=== PATIENT | female | born 1960 | race Caucasian/White ===

== ENCOUNTER 2024-10-27 20:31 | Inpatient (IN) | payer BC, SELFPAY ==
[2024-10-27] VITALS (7 sets, daily range): BP systolic 112–130; BP diastolic 65–99; BMI 25.6; BMI 25.4
--- NOTE | 2024-10-27 11:12 | ED.GENMED ---
History of Present Illness
<Barrie Ku, DO - Last Filed: 11/01/24 03:09>
General
Chief Complaint: Cancer Problem
Source: patient, spouse and family
Exam Limitations: none
Time Seen by Provider: 10/27/24 10:48
History of Present Illness
History of Present Illness:
Note:
CHIEF COMPLAINT(S)
Chills, muscle weakness, arm and leg weakness, headache, and lower back pain following recent cancer treatment and whole brain radiation.
HISTORY OF PRESENT ILLNESS
The patient is a 64-year-old female with a recent history of cancer treatment, reporting to the emergency department with complaints of chills, generalized weakness, and inability to ambulate independently. These symptoms began after recent
whole-brain radiation and a ketamine infusion on Wednesday. The patient slept for approximately 18 hours post-treatment and has since experienced significant leg and arm weakness, making it difficult to get out of bed or walk. She reported chills
and a low-grade fever of 99.5�F, particularly intense on the first night. She experiences aches primarily in her legs after prolonged periods of lying down and describes lower back pain. Additionally, the patient has been experiencing headaches and
a reduced level of alertness since yesterday. The patients and daughter accompanied her and emphasized that her symptoms feel worse than anticipated. They were instructed by her healthcare provider to come to the facility for further
evaluation, including MRIs of the brain and spine, due to the deterioration in her condition.
ADDITIONAL HISTORY OBTAINED FROM SOURCES OTHER THAN THE PATIENT
Per the patients and daughter, her condition, specifically her muscle weakness and fatigue, appears more severe than anticipated post-treatment. They also coordinated with her healthcare provider regarding the necessity of MRIs.
CHRONIC MEDICAL CONDITIONS SIGNIFICANTLY AFFECTING CARE
The patient has a known history of cancer and has recently undergone whole-brain radiation therapy.
REVIEW OF SYSTEMS
- Neurological: Severe muscle weakness in arms and legs, headaches, reduced alertness.
- Musculoskeletal: Significant leg weakness, difficulty in ambulating independently.
- General: Chills, low-grade fever of 99.5�F.
- Pain: Lower back pain, muscle aches when lying down for prolonged periods.
PHYSICAL EXAM
General: Alert, no acute distress.
Skin: Warm, dry.
Head: Normocephalic, atraumatic.
Neck: Supple, trachea midline.
Eye Ears, nose, mouth and throat: Oral mucosa moist.
Cardiovascular: Normal peripheral perfusion, No edema.
Respiratory: Respirations are non-labored.
Gastrointestinal: Abdomen nondistended.
Back: Normal range of motion, Normal alignment.
Musculoskeletal: Normal range of motion, noticeable weakness in arm and leg muscles.
Neurological: Alert, reduced motor strength in arms and legs, No focal neurological deficit observed.
Psychiatric: Cooperative, appropriate mood & affect.
PLAN
1. Contact the oncology team and her primary oncologist to discuss the patients condition and coordination of care.
2. Obtain MRI of the brain and spine as a priority to evaluate for any pathological changes.
3. Access the port for necessary lab work and potential medication administration.
4. Evaluate the possibility of infectious causes considering the fever and chills.
5. Monitor vital signs and level of consciousness closely.
6. Topical anesthetic may be used prior to accessing the port to minimize discomfort.
DIFFERENTIAL DIAGNOSIS
The Differential Diagnosis includes, in no particular order and is not limited to:
1. Neoplastic progression or metastasis
2. Paraneoplastic syndrome
3. Side effects from recent radiation therapy
4. Medication side effects
5. Neurological disorder complications
6. Infection or febrile illness
7. Dehydration or electrolyte imbalance
8. Anemia
9. Myopathy
10. Cerebrovascular event
Phy Exam
<Barrie Ku DO - Last Filed: 11/01/24 03:09>
Physical Exam
Physical Exam:
.
Course
<Barrie Ku DO - Last Filed: 11/01/24 03:09>
Orders/Labs/Results
Orders:
Orders
10/27/24 11:11
Cardiac Monitoring- Treatment ONCE
IV Insert/Care/Rem.- Treatment PRN
10/27/24 11:23
COVID-19 Antigen Urgent
Source: Nasal Swab
Complete Blood Count/With Diff Urgent
Comprehensive Metabolic Panel Urgent
Lactic Acid Q4H
Comment: CANCEL 2nd LACTIC ACID IF 1st LACTIC ACID IS LESS THAN 2
Urinalysis Reflex To Culture Urgent
Date Specimen was Collected: 10/27/24
Time Specimen was Collected: 11:13
Blood Culture Q30M
CURT Source: Blood/Venous
Specimen Description:
Blood Culture Q30M
CURT Source: Blood/Venous
Specimen Description:
Influenza A+B Rapid Molecular Urgent
CURT Source: Nasal Swab
Specimen Description:
10/27/24 13:04
MR Brain W/o & With Contrast Urgent
Comment:
Reason For Exam: weakness, headache, lung ca, brain mets
OK for patient to be off Cardiac Monitoring for MRI: Yes
Recent pill cam endoscopy?: No
MR Lumbar W/o & With Contrast Urgent
Comment:
Reason For Exam: weakness, diff walking, lung ca, brain mets
OK for patient to be off Cardiac Monitoring for MRI: Yes
Recent pill cam endoscopy?: No
10/27/24 13:39
0.9% Sodium Chloride 1000 ml [Nss] 1,000 ml IV BOLUS
10/27/24 Dinner
Regular
At Your Request: Full Participation
Fluid Restriction: 1200 mL/day (40 oz)
10/27/24 19:51
Admit/Transfer Patient As Directed
Co-Sign Provider:
Level of Care: Inpatient admission
Assign to:: Medical/Surgical
Physician / Group: Alexsandra
Diagnosis: Metastatic brain mets
Reason for Hospitalization: new metastatic brain lesions
Expected length of stay greater than two midnights?: Yes
ELOS- Estimated Length of Stay in days: 2
I certify the patient meets the requirements for IP care: Yes
PRN Pain Medication Management As Directed
May give lesser potent ordered pain med per pt: Yes
preference::
Protocol:: Medication orders for pain may be administered in a
manner that supports deferring to patient preference
when the pt is:
- Requesting an ordered lesser potent pain medication.
Least to most potent pain medications are defined
as: acetaminophen < NSAID < tramadol < opioids
(morphine, oxycodone, hydromorphone).
- Requesting a lesser dose of the same medication IF
ORDERED.
- Requesting a less intrusive route of administration
if both routes are prescribed by the provider (PO <
IV).
10/27/24 19:53
Code Status As Directed
Resuscitation Status: Full Code
10/27/24 20:59
Acetaminophen [Tylenol] 650 mg PO Q4HPRN PRN
Bisacodyl [Dulcolax] 10 mg RECTAL [id number] PRN
Dexamethasone [Decadron] 2 mg PO Q12
Docusate W/Senna [Senokot-S] 1 tablet PO BIDPRN PRN
HYDROmorphone [Dilaudid] 0.5 mg IV Q4HPRN PRN
Ondansetron Injectable [Zofran] 4 mg IV Q6HPRN PRN
Oxycodone [Roxicodone] 5 mg PO Q4HPRN PRN
Polyethylene Glycol Powder [Miralax] 17 grams PO DAILYPRN PRN
Zolpidem Tartrate [Ambien] 10 mg PO HSPRN PRN insomnia
10/27/24 20:59
Osmolality, Random Urine Routine
Date Specimen was Collected: 10/28/24
Time Specimen was Collected: 13:56
Urine Sodium Routine
Date Specimen was Collected: 08/30/25
Time Specimen was Collected: 13:56
Activity As Directed
Activity Level: With Assistance
Neurological Checks As Directed
Frequency: q8h
Orthostatic Vital Signs As Directed
Orthostatic VS Frequency: Daily
Vital Signs As Directed
Frequency: Per unit guidelines
Pulse Ox/spot Check [RESP] Routine
Quantity: 1
DX Deep Vein Thrombosis Video Routine
10/27/24 22:00
Levetiracetam [Keppra] 750 mg PO BID
Nortriptyline [Pamelor] 10 mg PO HS
Rosuvastatin Calcium [Crestor] 40 mg PO HS
10/28/24 06:00
Levothyroxine [Synthroid] 75 mcg PO DAILY @ 0600
10/28/24 08:00
Bisoprolol Fumarate [Zebeta] 5 mg PO DAILY
Clopidogrel Bisulfate [Plavix] 75 mg PO DAILY
Ezetimibe [Zetia] 10 mg PO DAILY
FOLic ACID [Folvite] 1 mg PO DAILY
Pantoprazole [Protonix] 40 mg PO DAILY
10/28/24 08:07
Basic Metabolic Panel IN AM
Complete Blood Count/No Diff IN AM
Cortisol, Random IN AM
Magnesium IN AM
TSH Reflex To Free T4 IN AM
10/28/24 18:00
Enoxaparin Sodium [Lovenox] 40 mg SC QPM
Abnormal Lab Results
10/27/24
11:23
Hgb 11.7 L g/dL
(12.0-16.0)
Hct 34.4 L %
(37.0-47.0)
MCV 78.5 L fL
(81.0-99.0)
MCH 26.7 L pg
(27.0-31.0)
RDW 15.5 H %
(11.5-14.5)
Abs Immat Gran (auto) 0.1 H 10^3/uL
(0-0.05)
Absolute Lymphs (auto) 0.8 L 10^3/uL
(1.2-3.4)
Absolute Monos (auto) 1.1 H 10^3/uL
(0.1-0.6)
Immature Gran % 0.8 H %
(0-0.5)
Lymphocytes % 9.6 L %
(20.5-51.1)
Monocytes % 14.2 H %
(1.7-9.3)
Sodium 128 L mmol/L
(135-145)
Chloride 94 L mmol/L
(98-107)
Glucose 125 H mg/dl
(70-99)
10/27/24 11:23
10/27/24 11:23
Vital Signs
Initial and Last Documented VS:
Initial Vital Signs
Temp Pulse Resp BP Pulse Ox
97.8 F 79 18 130/86 95
10/27/24 09:52 10/27/24 09:52 10/27/24 09:52 10/27/24 09:52 10/27/24 09:52
Last Documented Vital Signs
Temp Pulse Resp BP Pulse Ox
97.8 F 81 18 135/89 94
10/28/24 23:00 10/28/24 23:00 10/28/24 23:00 10/28/24 23:00 10/28/24 23:00
<Shemar Baugh, - Last Filed: 10/27/24 18:03>
Orders/Labs/Results
Orders:
Orders
10/27/24 11:11
Cardiac Monitoring- Treatment ONCE
IV Insert/Care/Rem.- Treatment PRN
10/27/24 11:23
COVID-19 Antigen Urgent
Source: Nasal Swab
Complete Blood Count/With Diff Urgent
Comprehensive Metabolic Panel Urgent
Lactic Acid Q4H
Comment: CANCEL 2nd LACTIC ACID IF 1st LACTIC ACID IS LESS THAN 2
Urinalysis Reflex To Culture Urgent
Date Specimen was Collected: 10/27/24
Time Specimen was Collected: 11:13
Blood Culture Q30M
CURT Source: Blood/Venous
Specimen Description:
Blood Culture Q30M
CURT Source: Blood/Venous
Specimen Description:
Influenza A+B Rapid Molecular Urgent
CURT Source: Nasal Swab
Specimen Description:
10/27/24 13:04
MR Brain W/o & With Contrast Urgent
Comment:
Reason For Exam: weakness, headache, lung ca, brain mets
OK for patient to be off Cardiac Monitoring for MRI: Yes
Recent pill cam endoscopy?: No
MR Lumbar W/o & With Contrast Urgent
Comment:
Reason For Exam: weakness, diff walking, lung ca, brain mets
OK for patient to be off Cardiac Monitoring for MRI: Yes
Recent pill cam endoscopy?: No
10/27/24 13:39
0.9% Sodium Chloride 1000 ml [Nss] 1,000 ml IV BOLUS
10/27/24 Dinner
Regular
At Your Request: Full Participation
Fluid Restriction: 1200 mL/day (40 oz)
10/27/24 19:51
Admit/Transfer Patient As Directed
Co-Sign Provider:
Level of Care: Inpatient admission
Assign to:: Medical/Surgical
Physician / Group: Alexsandra
Diagnosis: Metastatic brain mets
Reason for Hospitalization: new metastatic brain lesions
Expected length of stay greater than two midnights?: Yes
ELOS- Estimated Length of Stay in days: 2
I certify the patient meets the requirements for IP care: Yes
PRN Pain Medication Management As Directed
May give lesser potent ordered pain med per pt: Yes
preference::
Protocol:: Medication orders for pain may be administered in a
manner that supports deferring to patient preference
when the pt is:
- Requesting an ordered lesser potent pain medication.
Least to most potent pain medications are defined
as: acetaminophen < NSAID < tramadol < opioids
(morphine, oxycodone, hydromorphone).
- Requesting a lesser dose of the same medication IF
ORDERED.
- Requesting a less intrusive route of administration
if both routes are prescribed by the provider (PO <
IV).
10/27/24 19:53
Code Status As Directed
Resuscitation Status: Full Code
10/27/24 20:59
Acetaminophen [Tylenol] 650 mg PO Q4HPRN PRN
Bisacodyl [Dulcolax] 10 mg RECTAL [id number] PRN
Dexamethasone [Decadron] 2 mg PO Q12
Docusate W/Senna [Senokot-S] 1 tablet PO BIDPRN PRN
HYDROmorphone [Dilaudid] 0.5 mg IV Q4HPRN PRN
Ondansetron Injectable [Zofran] 4 mg IV Q6HPRN PRN
Oxycodone [Roxicodone] 5 mg PO Q4HPRN PRN
Polyethylene Glycol Powder [Miralax] 17 grams PO DAILYPRN PRN
Zolpidem Tartrate [Ambien] 10 mg PO HSPRN PRN insomnia
10/27/24 20:59
Osmolality, Random Urine Routine
Date Specimen was Collected: 10/28/24
Time Specimen was Collected: 13:56
Urine Sodium Routine
Date Specimen was Collected: 10/28/24
Time Specimen was Collected: 13:56
Activity As Directed
Activity Level: With Assistance
Neurological Checks As Directed
Frequency: q8h
Orthostatic Vital Signs As Directed
Orthostatic VS Frequency: Daily
Vital Signs As Directed
Frequency: Per unit guidelines
Pulse Ox/spot Check [RESP] Routine
Quantity: 1
DX Deep Vein Thrombosis Video Routine
10/27/24 22:00
Levetiracetam [Keppra] 750 mg PO BID
Nortriptyline [Pamelor] 10 mg PO HS
Rosuvastatin Calcium [Crestor] 40 mg PO HS
10/28/24 06:00
Levothyroxine [Synthroid] 75 mcg PO DAILY @ 0600
10/28/24 08:00
Bisoprolol Fumarate [Zebeta] 5 mg PO DAILY
Clopidogrel Bisulfate [Plavix] 75 mg PO DAILY
Ezetimibe [Zetia] 10 mg PO DAILY
FOLic ACID [Folvite] 1 mg PO DAILY
Pantoprazole [Protonix] 40 mg PO DAILY
10/28/24 08:07
Basic Metabolic Panel IN AM
Complete Blood Count/No Diff IN AM
Cortisol, Random IN AM
Magnesium IN AM
TSH Reflex To Free T4 IN AM
10/28/24 18:00
Enoxaparin Sodium [Lovenox] 40 mg SC QPM
Abnormal Lab Results
10/27/24
11:23
Hgb 11.7 L g/dL
(12.0-16.0)
Hct 34.4 L %
(37.0-47.0)
MCV 78.5 L fL
(81.0-99.0)
MCH 26.7 L pg
(27.0-31.0)
RDW 15.5 H %
(11.5-14.5)
Abs Immat Gran (auto) 0.1 H 10^3/uL
(0-0.05)
Absolute Lymphs (auto) 0.8 L 10^3/uL
(1.2-3.4)
Absolute Monos (auto) 1.1 H 10^3/uL
(0.1-0.6)
Immature Gran % 0.8 H %
(0-0.5)
Lymphocytes % 9.6 L %
(20.5-51.1)
Monocytes % 14.2 H %
(1.7-9.3)
Sodium 128 L mmol/L
(135-145)
Chloride 94 L mmol/L
(98-107)
Glucose 125 H mg/dl
(70-99)
10/27/24 11:23
10/27/24 11:23
Vital Signs
Initial and Last Documented VS:
Initial Vital Signs
Temp Pulse Resp BP Pulse Ox
97.8 F 79 18 130/86 95
10/27/24 09:52 10/27/24 09:52 10/27/24 09:52 10/27/24 09:52 10/27/24 09:52
Last Documented Vital Signs
Temp Pulse Resp BP Pulse Ox
97.8 F 81 18 135/89 94
10/28/24 23:00 10/28/24 23:00 10/28/24 23:00 10/28/24 23:00 10/28/24 23:00
<Barrie Ku, DO - Last Filed: 11/01/24 03:09>
*Pulse Oximetry
SaO2: 95
Oxygen Mode of Delivery: Room air
Patient hypoxic: no
*Critical Care Note
Total Time (30-74mins, 75-104mins- exclusive of procedures): Not Applicable
<Shemar Baugh, DO - Last Filed: 10/27/24 18:03>
Update Note
Update Note:
I evaluated the patient at bedside. Slight hyponatremia noted with a sodium of 128 with no old to compare, lactic 1.1, MRI brain shows multiple intraparenchymal brain mets some of which containing intratumoral hemorrhage and surrounded by vasogenic
edema. MRI lumbar shows herniated disc and facet joint arthrosi and there is no report for metastatic disease.
MRI Brain 09/12/2024
Brain mets 'some of which are compatible w/ hemorrhagic mets and moderate vasogenic edema:
R frontal 1.4cm
L frontal 1.3cm and 6mm
R parietal 8mm
L parietal 1.2cm
L parasagittal 6mm
L occipital 1.1cm
occipital 5mm and 7mm
MRI Brain today shows 2.1cm L temporal mass w/ large amnt vasogenic edema causing effacement of the left temporal lobe sulci and 1.3cm R frontal large amnt vasogenic edema and small intratumoral hemorrhage
I called JORDANA Melendez (Dr. Prabhakar's [employer]) at [phone].
ED Attending Note
<Barrie Ku, DO - Last Filed: 11/01/24 03:09>
-
Portions of this chart may have been created with voice recognition software.� Occasional wrong word or��sound alike� substitutions may have occurred due to the inherent limitations of voice recognition software.
Discharge Plan
Departure
Patient Disposition: Admit
Date of Disposition: 10/27/24
Time of Disposition: 19:03
Presentation/result/management discussed w/ accepting MD/DO: Hospitalist
Discharge Problem:
Metastasis to brain
Interventions
Interventions:
*Risk Screen - Suicide Last Done: 10/27/24 09:52
*ED COVID-19 Vaccine History Last Done: 10/27/24 21:07
*Nursing Disposition Last Done: 10/27/24 20:49
Discharge Date and Time
Discharge Date/Time: 10/27/24 20:50
[2024-10-27 11:38] LABS: Hematocrit 34.4 % (37.0-47.0); Hemoglobin 11.7 g/dL (12.0-16.0); Mean Corp Hgb Conc. 34.0 g/dL (33.0-37.0); Mean Corpuscular Volume 78.5 fL (81.0-99.0); Nucleated Red Blood Cells % 0 %; Platelet Count 207 10^3/uL (130-400); Red Cell Dist. Width 15.5 % (11.5-14.5)
[2024-10-27 11:50] LABS: ALT (SGPT) 30 U/L (0-35); AST (SGOT) 27 U/L (14-36); Albumin 4.3 g/dl (3.5-5.0); Alkaline Phosphatase 50 U/L (38-126); Blood Urea Nitrogen 11 mg/dl (7-17); Calcium 8.9 mg/dl (8.4-10.2); Carbon Dioxide 28 mmol/L (22-30); Chloride 94 mmol/L (98-107); Glucose 125 mg/dl (70-99); Potassium 3.6 mmol/L (3.5-5.1); Sodium 128 mmol/L (135-145); Total Protein 6.7 g/dl (6.3-8.2); eGFR > 60.00
[2024-10-27 12:01] LABS: COVID-19 Antigen Negative (Negative)
[2024-10-27 12:41] LABS: Urine Character Clear (Clear)
[2024-10-27] MEDS: NSS 1000 IV (13:49)
--- NOTE | 2024-10-27 19:08 | HPS.HSE ---
Family Physician
-
Family Physician: Hannah Lucio
Chief Complaint
-
metastatic lung ca
History of Present Illness
This is a 64-year-old female with past medical history significant for CAD status post stents complicated by in-stent restenosis in June 2024, lung cancer with mets to the brain that was diagnosed in August, hypertension, hyperlipidemia, presenting to
the emergency department due to worsening weakness over the last few days.
Briefly, patient was diagnosed with metastatic lung cancer with mets to the brain in August in the setting of new onset seizures. 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 She underwent whole brain radiation that ended
in September with steroid taper at that time. She is pending initiation of immunotherapy and was started on Keytruda on Wednesday. She follows up with Dr. Prabhakar. She denies having any new seizures since her initial presentation. She denies any
new medications.
After Keytruda infusion wednesday patient and family reported severe weakness. She could barely use her proximal muscles to move herself. She could barely stand. She was receiving almost 100% support by spouse. She also was highly somnolent
sleeping up to 18 hours after the treatment. Spouse denies any seizure-like activity. Case discussed with oncology [facility]. There was concern for worsening metastatic disease rather than side effect of the Keytruda infusion. Patient denies other
symptoms but noted low-grade temps to 99.5 and chills. She denied any urinary symptoms. She denied any cough or shortness of breath. Her oncologist requested that she get an MRI so she came [facility]. According to family
members and patient by the time she arrived symptoms had improved markedly and her weakness is now less than 50% compared to prior.
In the emergency department today she was afebrile, blood pressure was 115/65 with a pulse of 71 satting 97% on room air. Temperature was 91.8.
CBC was unremarkable, electrolytes notable for sodium of 128 but otherwise unremarkable with normal BUN and creatinine. UA was negative, COVID test was negative. Influenza test was negative.
The repeat MRI showing: (1) 1.8 x 2.1 x 2.1 cm metastasis in the anterior left temporal lobe surrounded by a large amount of vasogenic edema causing effacement of the left temporal lobe sulci.
(2) 1.3 x 1.2 x 1.3 cm metastasis in the posterior superior right frontal lobe with a large amount of surrounding vasogenic edema and a small amount of intratumoral hemorrhage.
(3) 7.6 x 8.8 x 7.9 mm metastasis in the posterior superior left frontal lobe surrounded by a large amount of vasogenic edema containing intratumoral hemorrhage.
(4) 7.9 x 6.0 x 8.6 mm metastasis in the superior lateral left parietal lobe containing intratumoral hemorrhage and surrounded by moderate vasogenic edema.
(5) 8.1 x 6.4 x 6.3 mm metastasis in the posterior left occipital lobe with mild surrounding vasogenic edema.
(6) 5.1 mm and 4 mm metastases in the p
Disease in comparison to prior MRI in August showing: Brain mets 'some of which are compatible w/ hemorrhagic mets and moderate vasogenic edema:
R frontal 1.4cm
L frontal 1.3cm and 6mm
R parietal 8mm
L parietal 1.2cm
L parasagittal 6mm
L occipital 1.1cm
occipital 5mm and 7mm
Case has been discussed with oncology pain. Patient accepted for transfer to [facility]. However bed will not be available until tomorrow. Pain did not recommend steroids given improvement in symptoms.
Medical History
Past Medical History
Past Medical History: Reports CAD (Status post PCI with stenting in June complicated by in-stent restenosis), Cancer (lung Ca with brain mets s/p XRT), GERD, Hypercholesterolemia and Other (Peripheral arterial disease status post aortobifemoral
graft/stent)
Past Surgical History: Reports and Other
Social History
Tobacco: Former Smoker
Alcohol: Occasional
Drug: None
Personal:
Living: With Family
Family History
Family History: Not pertinent
Allergies / Home Medications
Allergies reflects when Allergies were last updated in [facility] [employer].
Home Medications with original date entered in [employer]
Allergy/Medication List:
Allergies
Allergy/AdvReac Type Severity Reaction Status Date / Time
Penicillins Allergy Unknown Verified 10/27/24 09:52
Home Medications
bisoprolol 5 mg-hydrochlorothiazide 6.25 mg tablet 1 tab PO DAILY 10/27/24
clopidogrel 75 mg tablet 75 mg PO DAILY 10/27/24
ezetimibe 10 mg tablet 10 mg PO DAILY 10/27/24
folic acid 1 mg tablet 1 mg PO DAILY 10/27/24
levetiracetam 250 mg tablet 750 mg PO BID 10/27/24
levothyroxine 75 mcg tablet 75 mcg PO DAILY 10/27/24
nortriptyline 10 mg capsule 10 mg PO HS 10/27/24
pantoprazole 40 mg tablet,delayed release 40 mg PO DAILY 10/27/24
rosuvastatin 40 mg tablet 40 mg PO DAILY 10/27/24
zolpidem 10 mg tablet 10 mg PO HS PRN insomnia 10/27/24
Review of Systems
-
Constitutional: Reports No Symptoms
EENT: Reports No Symptoms
Respiratory: Reports No Symptoms
Cardiac: Reports No Symptoms
Abdomen/GI: Reports No Symptoms
: Reports No Symptoms
Musculoskeletal: Reports No Symptoms
Skin: Reports No Symptoms
Neurological: Reports Headache and Weakness
Endocrine: Reports No Symptoms
Hematologic/Lymphatic: Reports No Symptoms
Psych: Reports No Symptoms
Physical Exam
Vital Signs
Vital Signs
Temp Pulse Resp BP Pulse Ox
97.8 F 71 22 114/65 97
10/27/24 09:52 10/27/24 18:50 10/27/24 14:00 10/27/24 18:50 10/27/24 14:00
Physical Exam
General: Well Developed, Well Nourished and No Apparent Distress
HEENT: NormoCephalic, Moist mucous membranes and Atraumatic
Respiratory: Clear
Cardiac: S1/S2 and Regular Rhythm; No Murmur or Rub
GI: Soft, Non Tender, Non Distended and Normal Bowel Sounds; No Organomegaly
Rectal: Deferred by Provider
Musculoskeletal: No Clubbing, No Cyanosis and No Edema
Skin: No Rash
Neuro: AO x 3 and Nonfocal/grossly intact
Hematologic/Lymphatic: No Lymphadenopathy
Psych: Calm
Laboratory Results
-
10/27/24 11:23
10/27/24 11:23
Laboratory Results
Lactic Acid 1.1 mmol/L (0.7-2.0) 10/27/24 11:23
Total Bilirubin 0.6 mg/dl (0.2-1.3) 10/27/24 11:23
AST 27 U/L (14-36) 10/27/24 11:23
ALT 30 U/L (0-35) 10/27/24 11:23
Alkaline Phosphatase 50 U/L (38-126) 10/27/24 11:23
Data Reviewed
-
MRI: Report Reviewed by me
Lab Data: Labs Reviewed by me
Old Records: Reviewed
Impression/Plan
-
IMPRESSION:
64-year-old female with past medical history significant for CAD status post PCI with multiple stents, PAD status post aortobifemoral grafting, hypothyroid, GERD, recent diagnosis of metastatic lung cancer with mets to brain status post whole brain
radiation in early September now status post Keytruda presenting to the emergency department with onset of generalized weakness with mostly upper and lower extremity proximal muscle weakness and found to have new metastatic lesions on MRI with
vasogenic edema, hemorrhage and mild mass effect. Symptoms have improved since onset yesterday. She is now at about 50% of her regular strength. [facility] is accepted at [facility] for [facility] (Dr. Nichols).
PLAN:
Metastatic brain mets (primary lung cancer) -she has no new weakness, small mass effect on imaging, vasogenic edema. She is currently neurologically intact without any focal deficits and has normal mental status. Per discussion with Dr. Nichols no
urgency to initiate high-dose steroids at this time.
-Admit to [facility]
- Given mild symptoms, will start low-dose dexamethasone 2 mg twice daily for now
-Continue Keppra 750 twice daily for seizure prophylaxis
-Pain control and antiemetic
-Neurochecks every shift
-DVT prophylaxis with Lovenox subcu
- Patient to be transferred to [place] likely in the morning
Hyponatremia - Given metastatic Ca, likely SIADH. S/P 1 L NS in ED
- check orthostatics
- fluid restriction 1200 ml
- check urine studies
- check am cortisol/tsh
- hold hctz
CAD status post stent�last stent was in June and patient is on Plavix and statin
-Continue Plavix and statin
-Continue azithromycin
Hypertension
-Continue bisoprolol
DVT prophylaxis�Lovenox subcu
CODE STATUS�full code
[2024-10-27] MEDS: KEPPRA 750 MG PO (22:36)
[2024-10-27] MEDS: DECADRON 2 MG PO (22:36)
[2024-10-27] MEDS: AMBIEN 10 MG PO (22:36)
[2024-10-27] MEDS: PAMELOR 10 MG PO (22:37)
[2024-10-27] MEDS: CRESTOR 40 MG PO (22:37)
[2024-10-28] VITALS (7 sets, daily range): BP systolic 124–158; BP diastolic 69–94; PULSE 68–74; BMI 25.4
[2024-10-28] MEDS: SYNTHROID 75 MCG PO (06:17)
[2024-10-28] MEDS: TYLENOL 650 MG PO (08:30)
[2024-10-28] MEDS: KEPPRA 750 MG PO ×2 (08:30→21:08)
[2024-10-28] MEDS: PROTONIX 40 MG PO (08:31)
[2024-10-28] MEDS: FOLVITE 1 MG PO (08:31)
[2024-10-28] MEDS: ZEBETA 5 MG PO (08:31)
[2024-10-28] MEDS: PLAVIX 75 MG PO (08:31)
[2024-10-28] MEDS: ZETIA 10 MG PO (08:31)
[2024-10-28 08:35] LABS: Hematocrit 34.0 % (37.0-47.0); Hemoglobin 11.5 g/dL (12.0-16.0); Mean Corp Hgb Conc. 33.8 g/dL (33.0-37.0); Mean Corpuscular Volume 79.6 fL (81.0-99.0); Platelet Count 223 10^3/uL (130-400); Red Cell Dist. Width 15.4 % (11.5-14.5)
[2024-10-28] MEDS: DECADRON 2 MG PO ×2 (08:37→21:08)
[2024-10-28 08:56] LABS: Blood Urea Nitrogen 7 mg/dl (7-17); Calcium 9.1 mg/dl (8.4-10.2); Carbon Dioxide 28 mmol/L (22-30); Chloride 100 mmol/L (98-107); Estimated Creatinine Clearance 82 ml/min; Glucose 126 mg/dl (70-99); Magnesium 2.1 mg/dl (1.6-2.3); Potassium 4.0 mmol/L (3.5-5.1); Sodium 133 mmol/L (135-145); eGFR > 60.00
[2024-10-28 09:27] LABS: Cortisol, Random 3.2 ug/dl
--- NOTE | 2024-10-28 10:44 | PTCARENOTE ---
PT with cerebral edema and metastatic hemorrhage on MRI, Pt placed on [facility], Neuro checks and tele as per MD order. Tele box number [id number] with NSR with BBB and QT 38-40
--- NOTE | 2024-10-28 12:30 | W.PN.HOSP.TC ---
Today's Communication/Plan
-
continue decadron
scds
await transfer
Assessment / Plan
Assessment / Plan
Physical Exam
General: Well Developed, Well Nourished and No Apparent Distress
HEENT: NormoCephalic, Moist mucous membranes and Atraumatic
Respiratory: Clear
Cardiac: S1/S2 and Regular Rhythm; No Murmur or Rub
GI: Soft, Non Tender, Non Distended and Normal Bowel Sounds; No Organomegaly
Rectal: Deferred by Provider
Musculoskeletal: No Clubbing, No Cyanosis and No Edema
Skin: No Rash
Neuro: AO x 3 and Nonfocal/grossly intact
Hematologic/Lymphatic: No Lymphadenopathy
Psych: Calm
64-year-old female with past medical history significant for CAD status post PCI with multiple stents, PAD status post aortobifemoral grafting, hypothyroid, GERD, recent diagnosis of metastatic lung cancer with mets to brain status post whole brain
radiation in early September now status post Keytruda presenting to the emergency department with onset of generalized weakness with mostly upper and lower extremity proximal muscle weakness and found to have new metastatic lesions on MRI with
vasogenic edema, hemorrhage and mild mass effect. Symptoms have improved since onset yesterday. She is now at about 50% of her regular strength. She is accepted at [facility] for transfer (Dr. Nichols).
PLAN:
Metastatic brain mets (primary lung cancer) -she has no new weakness, small mass effect on imaging, vasogenic edema. She is currently neurologically intact without any focal deficits and has normal mental status. Per discussion with Dr. Nichols: no
urgency to initiate high-dose steroids at this time.
-[facility]
- Given mild symptoms, will start low-dose dexamethasone 2 mg twice daily for now
-Continue Keppra 750 twice daily for seizure prophylaxis
-Pain control and antiemetic
-Neurochecks every shift; RUST
-DVT prophylaxis with Lovenox subcu
- Patient to be transferred to [place]
Hyponatremia - Given metastatic Ca, likely SIADH. S/P 1 L NS in ED
- fluid restriction 1200 ml
- ft4 WNL
-improving
- hold hctz
CAD status post stent�last stent was in June and patient is on Plavix and statin
-Continue Plavix and statin
-Continue azithromycin
Hypertension
-Continue bisoprolol
DVT prophylaxis�SCDs
CODE STATUS�full code
More than 30 minutes spent in discharge including
Final examination of the patient
Summarizing hospital stay
Instructions for continuing care to all relevant caregivers
Preparation of discharge records, prescriptions, and referral forms
Total time spent (in minutes): 36
Anticipated Discharge: Today
Subjective/Interval History
-
Date of Service: October 28, 2024
no acute events overnight
Objective Data
-
Labs:
Laboratory Results
10/28/24
08:07
WBC 6.3
Hgb 11.5 L
Hct 34.0 L
Plt Count 223
Sodium 133 L
Potassium 4.0
Chloride 100
Carbon Dioxide 28
BUN 7
Creatinine 0.5 L
Glucose 126 H
Calcium 9.1
Vital Signs:
Vital Signs
Temp Pulse Resp BP Pulse Ox
97.9 F 68 17 139/82 97
10/28/24 11:29 10/28/24 11:29 10/28/24 11:29 10/28/24 11:29 10/28/24 11:29
Review of Systems
-
History Source: Patient
All other systems: Not reviewed unless documented
Data Reviewed
-
MRI: Report Reviewed by me
Labs: Labs Reviewed by me
--- NOTE | 2024-10-28 12:38 | W.DS.TRANS ---
DC Summary - [employer] Consultant
-
Discharge Instructions:
Instructions:
Stand-Alone Forms:
Changes to Home Medications: No
Discharge Medications:
DC Medications w/original date entered in [facility] [facility]
bisoprolol 5 mg-hydrochlorothiazide 6.25 mg tablet 1 tab PO DAILY 10/27/24
clopidogrel 75 mg tablet 75 mg PO DAILY 10/27/24
ezetimibe 10 mg tablet 10 mg PO DAILY 10/27/24
folic acid 1 mg tablet 1 mg PO DAILY 10/27/24
levetiracetam 250 mg tablet 750 mg PO BID 10/27/24
levothyroxine 75 mcg tablet 75 mcg PO DAILY 10/27/24
nortriptyline 10 mg capsule 10 mg PO HS 10/27/24
pantoprazole 40 mg tablet,delayed release 40 mg PO DAILY 10/27/24
rosuvastatin 40 mg tablet 40 mg PO DAILY 10/27/24
zolpidem 10 mg tablet 10 mg PO HS PRN insomnia 10/27/24
Home Medication Changes
na
Pending Results: No
--- NOTE | 2024-10-28 16:43 | CM ---
Alert awake oriented patient who lives with her Lance in a 2 story home with 2 steps to enter and 12 steps to bed/bathroom. She is independent in [facility] daily [facility].She does not drive .She used a walker here in hospital.She is for
transfer to [place] when bed available. Transfer pkg completed by MD . Receiving MD is Dr Nichols. Pt to be transported by ambulance .
No VN in past . No SNF hx
Pharmacy [address] [place]
PCP Dr Lucio
PLAN [place] transfer after bed available
[2024-10-28] MEDS: CRESTOR 40 MG PO (21:07)
[2024-10-28] MEDS: AMBIEN 10 MG PO (21:07)
[2024-10-28] MEDS: PAMELOR 10 MG PO (21:08)
--- NOTE | 2024-10-28 23:33 | PTCARENOTE ---
[place] transfer center called with available bed. [facility] transport arranged for midnight pickup tonight. [place] transfer center notified of pickup time. Transfer packet arranged. Pt and spouse notified of transfer plan. Report called to Lashon aguilera at
[place].
--- NOTE | 2024-10-29 00:19 | PTCARENOTE ---
Pt transported to [place] via [facility] at midnight. All personal belongings intact and taken with patient.
== END 2024-10-29 00:30 | disposition short-term general hospital (02) | DRG 180 ==
LOC: 3 WEST ACU 20:31
PROVIDERS: ADMITTING PHYSICIAN Internal Medicine; ATTENDING PHYSICIAN Internal Medicine; EMERGENCY PHYSICIAN Emergency Medicine; FAMILY PHYSICIAN Family Medicine
DX: C34.90 Malignant neoplasm of unspecified part of unspecified bronchus or lung (principal); G93.6 Cerebral edema; C79.31 Secondary malignant neoplasm of brain; E22.2 Syndrome of inappropriate secretion of antidiuretic hormone; I10 Essential (primary) hypertension; E78.00 Pure hypercholesterolemia, unspecified; Z87.891 Personal history of nicotine dependence; Z88.0 Allergy status to penicillin; E03.9 Hypothyroidism, unspecified; I25.10 Atherosclerotic heart disease of native coronary artery without angina pectoris; Z95.5 Presence of coronary angioplasty implant and graft; I73.9 Peripheral vascular disease, unspecified; Z79.02 Long term (current) use of antithrombotics/antiplatelets; Z92.3 Personal history of irradiation; Z11.52 Encounter for screening for COVID-19; K21.9 Gastro-esophageal reflux disease without esophagitis
CPT/HCPCS: 70553; 72158; 80048; 80053; 81003; 82533; 83605; 83735; 83935; 84300; 84439; 84443; 85025; 85027; 87040; 87502; 87811; 96360; 99284; A9575